=== PATIENT | female | born 1950 | race Caucasian/White ===

== ENCOUNTER 2018-06-13 00:36 | Observation (INO) ==
[2018-06-13] MEDS ORDERED: Naloxone 0.4 MG/ML INJ IVP PRN (12:02)
[2018-06-13] MEDS: Diclofenac Sodium 75 MG TABLET PO SCH (16:42)
[2018-06-13] MEDS ORDERED: traZODone 50 MG TABLET PO SCH (18:00)
[2018-06-13] MEDS: traMADol 50 MG TABLET PO PRN (20:16)
[2018-06-13] MEDS: Azithromycin 500 MG in D5% in Water 250 ML IVPB SCH (20:17)
[2018-06-13] MEDS: cefTRIAXone 1,000 MG in Water for inj. (sterile) 20 ML 10 ML IVP SCH (20:24)
[2018-06-13] MEDS: Budesonide/Formoterol 80/4.5 MDI IH SCH (21:52)
--- NOTE | 2018-06-13 22:07 | Internal Med History&Physical ---
Date of Encounter: 06/13/18 Time of Encounter: 17:00 Internal Medicine - H&P: HPI Admitted From: Home Plans for Post Hospital Care: Home History of present illness: The patient is a 68-year-old woman. She has had expressive aphasia for the last 5-7 days. It is like she is not able to answer simple questions at times. Sometimes, she starts answering the questions but cannot finish answers. Denies weakness in extremities. She has normal swallowing. She has normal gait. The patient has had mild/moderate cough and some wheezing for the last 2 weeks. She was found to have left-sided pneumonia, when evaluated at [facility] emergency department. She does not have any fever or chills. She has not developed any dyspnea. It was on May 31, when this patient had an episode of altered mental status. She was found to have hyponatremia and dehydration, when evaluated in an emergency department. PAST MEDICAL HX: She has been treated for hypertension, asthma, GERD, fibromyalgia and depression with anxiety. PAST FAMILY HX: Positive for type 2 diabetes mellitus and hypertension. PAST SOCIAL HX: She has no history of alcohol or tobacco use. REVIEW OF SYSTEMS: All 14 organ systems were reviewed by me with the patient. Positive and pertinent negative findings are listed above. The rest of organ systems is negative. PHYSICAL EXAM: Skin: Free of rash and discoloration. Eyes: Sclera is white. There is no discharge from eyes. ENMT: Oral/pharyngeal mucosa is normal in appearance. There is no discharge from nose or ears. Respiratory: Normal breath sounds with no crackles and wheezes bilaterally. CV: Heart is regular with no gallop or murmur. GI: Abdomen is flat and soft with no palpable mass or visceromegaly. : There is no tenderness in patient's flanks bilaterally. Neuro exam: He has good strength in upper and lower extremities. He has normal eye movements. Psychiatric: He has normal affect. His thought process is appropriate to the situation. ADDITIONAL DATA: She had a bunch of tests done at [facility] emergency room. They found her to have a patchy opacity within the left upper lung; with some regularity. CBC showed hemoglobin of 15.5 with WBC of 7.7 thousand and normal platelet count. Electrolytes were normal. Creatinine was 0.80. Random glucose was 101. Liver function tests were normal. Lactic acid was 0.7. A/P: Expressive aphasia. We did MRI of her brain. It showed normal findings. We will consult Dr. Cm, neurology. Pneumonia. I will continue IV Rocephin. I will add IV Zithromax. I cannot hear any wheezes. I will make her nebulizer treatments with DuoNeb on when necessary basis. Hypertension. Under control. To continue carvedilol. Asthma. Under control. To continue Advair and when necessary Ventolin HFA inhalations. GERD. Continue omeprazole. Past Med Surg Social Fam HX - Past Medical History Medical history: COPD, GERD, hypertension Psychiatric history: no psych history - Social History Smoking Status: Never smoker Alcohol use: occasionally Drug use: none - Family History Father Name: donnie andrade Living Status: Hx Family Endocrine Disorder: Yes (dm) Internal Medicine - H&P: Meds Buspirone HCl [Buspar] 10 mg PO BID 04/07/18 [History] Diclofenac Sodium [Voltaren] 75 mg PO BIDWM 04/07/18 [History] Fluticasone/Salmeterol [Advair 250-50 Diskus] 1 each IH BID 04/07/18 [History] Omeprazole [PriLOSEC] 40 mg PO DAILY 04/07/18 [History] Pregabalin [Lyrica] 100 mg PO BID 04/07/18 [History] hydroCHLOROthiazide [Hydrochlorothiazide] 25 mg PO QAM 04/07/18 [History] Albuterol Sulfate [Ventolin Hfa] 2 puff IH Q6H PRN 06/13/18 [History] Carvedilol [Coreg] 25 mg PO BID 06/13/18 [History] Duloxetine HCl [Cymbalta] 60 mg PO DAILY 06/13/18 [History] Etodolac 400 mg PO BID 06/13/18 [History] Lisinopril [Zestril] 20 mg PO DAILY 06/13/18 [History] traZODone [TraZODone] 50 mg PO HS 06/13/18 [History] 3 Allergy/AdvReac Type Severity Reaction Status Date / Time No Known Drug Allergies Allergy Unknown none Verified 06/12/18 19:39 - Constitutional Vitals: Temp Pulse Resp BP Pulse Ox 98.2 F 88 16 177/84 95 06/13/18 19:46 06/13/18 19:46 06/13/18 21:52 06/13/18 19:46 06/13/18 21:52 General appearance: Present: A&O X 3, no acute distress, answers questions appropriately Exam: xx Internal Med - H&P Results - Impressions ITS Impressions Brain MRI 06/13/18 06:12 IMPRESSION: Cerebral atrophy. Moderate chronic small vessel ischemic changes. No acute brain parenchymal abnormality. D/ / 06/13/2018 15:31:06 Erica Wasserman MD / [email or web address] Interpreting Provider: Erica Wasserman MD - Assessment and plan (1) Expressive aphasia Current Visit: Yes Status: Acute (2) Pneumonia Current Visit: Yes Status: Acute Qualifiers: Pneumonia type: due to unspecified organism Laterality: left Lung location: upper lobe of lung Qualified Code(s): J18.1 - Lobar pneumonia, unspecified organism (3) Asthma Current Visit: Yes Status: Chronic Qualifiers: Asthma severity: mild Asthma persistence: unspecified Asthma complication type: unspecified Qualified Code(s): J45.909 - Unspecified asthma, uncomplicated (4) GERD (gastroesophageal reflux disease) Current Visit: Yes Status: Chronic Qualifiers: Esophagitis presence: esophagitis presence not specified Qualified Code(s): K21.9 - Gastro-esophageal reflux disease without esophagitis (5) Fibromyalgia Current Visit: Yes Status: Acute - Time Spent With Patient Total time spent is greater than 50% in coordination of care (as documented) at patient's floor/unit and/or counseling patient: 25 - 35 minutes - VTE Reasons for not Prescribing Prophylaxis: Treatment not Indicated - Low risk for VTE Deep Vein Thrombosis/Pulmonary Embolism Present on Admission: No
[2018-06-14 03:09] LABS: Basophils # 0.1 K/mcL (0.0-0.2); Basophils % 0.6 %; Eosinophils # 0.1 K/mcL (0.0-0.6); Eosinophils % 1.2 %; Hemoglobin 13.9 g/dL (11.5-15.4); Immature Granulocytes % 0.3 % (0-4); Lymphocytes # 3.2 K/mcL (0.6-4.6); Lymphocytes % 33.8 %; Mean Corpuscular HGB Conc 32.3 g/dL (31.6-35.5); Mean Corpuscular Hemoglobin 28.4 pg (28.0-33.3); Mean Corpuscular Volume 87.9 fL (83.0-100.0); Mean Platelet Volume 10.1 fL (9.4-12.4); Monocytes # 0.6 K/mcL (0.0-1.3); Monocytes % 6.6 %; Neutrophils # 5.4 K/mcL (1.6-8.9); Platelet Count 272 K/mcL (140-400); Red Blood Count 4.89 M/mcL (3.82-4.97); Red Cell Distribution Width 14.2 % (11.5-14.5); Segmented Neutrophils % 57.5 %
[2018-06-14 03:29] LABS: BUN/Creatinine Ratio 20 (6-26); Blood Urea Nitrogen 17 mg/dL (8-23); Calcium 9.3 mg/dL (8.6-10.3); Carbon Dioxide 25 mEq/L (23-29); Chloride 100 mEq/L (98-107); Glucose 116 mg/dL (70-105); Osmolality,Calculated 279 (280-300); Potassium 3.8 mEq/L (3.5-5.1); Sodium 133 mEq/L (136-145); eGFR For Non-African Americans > 60 (> 60)
[2018-06-14] MEDS: *HR* Promethazine 25 MG/ML VIAL IVP PRN ×2 (07:20→14:06)
[2018-06-14] MEDS: hydroCHLOROthiazide 25 MG TABLET PO SCH (07:48)
[2018-06-14] MEDS: Diclofenac Sodium 75 MG TABLET PO SCH ×2 (07:48→17:21)
[2018-06-14] MEDS: cefTRIAXone 1,000 MG in Water for inj. (sterile) 20 ML 10 ML IVP SCH (07:49)
[2018-06-14] MEDS: Budesonide/Formoterol 80/4.5 MDI IH SCH ×2 (07:50→20:44)
[2018-06-14] MEDS: traMADol 50 MG TABLET PO PRN (08:01)
[2018-06-14] MEDS ORDERED: *HR* Labetalol 20 MG/4 ML SYRINGE IVP ONE ×2 (08:29→10:33)
[2018-06-14] MEDS ORDERED: NON-FORMULARY MEDICATION 1 EACH EACH (Duloxetine Hcl [Cymbalta] 60 MG) PO SCH (09:00)
[2018-06-14] MEDS: amLODIPine 5 MG TABLET PO SCH (09:43)
--- NOTE | 2018-06-14 11:00 | Neurology - Consult Note ---
Date of Encounter: 06/14/18 Time of Encounter: 10:53 Assessment and Plan (1) Altered mental status, unspecified Current Visit: Yes Status: Acute Patient appears encephalopathic to me. This appears to be mild degree and there appears to be component of memory difficulty and mental status change but the language content appears largely intact. She is able to spell, oriented to time place and person and at times she may appear a little slow in looking for the right words but the patterns certainly not aphasia or dysphasic. She has such similar presentation in last month found to be related to hyponatremia or UTI. There may be also a component of baseline mild cognitive impairment due to MRI of brain showing moderate small vessel ischemic changes. But since the mental status is acute, this white matter signal changes would not be the cause for blanchard ch mental status change. At this time, i would recommend continuing medical and supportive. Not much to add from neurology perspective. not concerned for [employer] MEDICAL ASSISTANT infection or encephalitis. She does have chronic headaches and fibromyalgia and been taking tramadol so it would expected that she has chronic headaches. She is currently nauseous and vomiting so would recommend treating for that. A carotid artery duplex study would be appropriate but would not explain her clinical symptoms. Due to the degree of white matter signal changes it would be beneficial to start her on aspirin 81mg daily if no contraindications exist. Qualifiers: Altered mental status type: unspecified Qualified Code(s): R41.82 - Altered mental status, unspecified History of Present Illness Chief complaint: slurred speech and altered mental status HPI: Ms. Carpio is a 68 year old female with PMH significant for HTN, emphysema, fibromyalgia, GERD, who was admitted to the hospital for evaluation of altered mental status. She saw her PCP on 06/12/2018 who thought that she was altered and sent her to [facility], then transferred for further evaluation mainly to assess possibility of a stroke. Patient has had episodes of alerted mental status in May due to medical conditions, including UTI, hyponatremia therefore initially she was though to be some of these conditions. An MRI of brain showed no evidence of acute infarct. Neurology was consulted to evaluate her. At the time of this interview, patient is having no significant aphasia or dysphasic symptoms, rather mild dysarthria and also a component of memory difficulty Overall speaking her language content appears appropriate. She states that she feels not not well because she has been vomiting. She complains of having frontal headache but no neck pain, no nuchal rigidity CT of head and MRI of brain images are reviewed and showed no acute intracranial abnormality. There are nonspecific white matter signal changes consistent with small vessel ischemia. Past Med Surg Social Fam HX - Past Medical History Medical history: COPD, GERD, hypertension Psychiatric history: no psych history - Social History Smoking Status: Never smoker Alcohol use: occasionally Drug use: none - Family History Father Name: donnie andrade Living Status: Hx Family Endocrine Disorder: Yes (dm) Medications and Allergies Buspirone HCl [Buspar] 10 mg PO BID 04/07/18 [History] Diclofenac Sodium [Voltaren] 75 mg PO BIDWM 04/07/18 [History] Fluticasone/Salmeterol [Advair 250-50 Diskus] 1 each IH BID 04/07/18 [History] Omeprazole [PriLOSEC] 40 mg PO DAILY 04/07/18 [History] Pregabalin [Lyrica] 100 mg PO BID 04/07/18 [History] hydroCHLOROthiazide [Hydrochlorothiazide] 25 mg PO QAM 04/07/18 [History] Albuterol Sulfate [Ventolin Hfa] 2 puff IH Q6H PRN 06/13/18 [History] Carvedilol [Coreg] 25 mg PO BID 06/13/18 [History] Duloxetine HCl [Cymbalta] 60 mg PO DAILY 06/13/18 [History] Etodolac 400 mg PO BID 06/13/18 [History] Lisinopril [Zestril] 20 mg PO DAILY 06/13/18 [History] traZODone [TraZODone] 50 mg PO HS 06/13/18 [History] Allergy/AdvReac Type Severity Reaction Status Date / Time No Known Drug Allergies Allergy Unknown none Verified 06/12/18 19:39 All Systems: The remainder of the systems were reviewed and are negative Physical Examination - Vital Signs Vital Signs: Initial Vital Signs Temp Pulse Resp BP Pulse Ox 97.8 F 65 14 184/103 96 06/13/18 03:07 06/13/18 03:07 06/13/18 03:07 06/13/18 03:07 06/13/18 03:07 - Constitutional General appearance: uncomfortable - Neurologic Detailed motor examination: full strength in all major muscle groups Motor examination - right side: 10/12: deltoids, biceps, triceps, wrist flexion, wrist extension, general farm hand, hip flexors, tibialis Anterior, quadriceps, toe extension (EHL), plantarflexion Motor examination - left side: 10/12: deltoids, biceps, triceps, wrist flexion, wrist extension, hip flexors, general farm hand, quadriceps, tibialis Anterior, toe extension (EHL), plantarflexion Detailed sensory examination: intact Posture: other (None) Reflex and gait examination: intact (Gait not assessed) Reflexes: Biceps: 2+, Triceps: 2+, Brachioradialis: 2+, Patella: 2+, Achilles: 2+ Mental Status Examination: awake, alert, oriented to person, oriented to place, oriented to time, follows commands appropriately, answers questions appropria tely, no agnosia, no aphasia, no aproxia Cranial nerve examination: PERRL, EOMI, visual bull intact, corneal reflexes brisk symmetrically, sensory to face intact, mastication intact, no facial asymmetry is present, no dysarthria, hearing is intact symmetrically, soft palat e elevates bilaterally upon phonation, gag reflex intact, flexes SCM and trapezius muscles symmetrically with full power, tongue protrudes midline, no atrophy or facial fasiculations present Cerebellar examination: no dysmetria, performs finger to nose and heel to jacques symmetrically without ataxia, no gait ataxia, no truncal ataxia, no difficulty with rapid alternating movements Results - Laboratory Findings CBC and BMP: 06/14/18 02:51 06/14/18 02:51 Abnormal lab findings: Abnormal lab results Sodium 133 mEq/L (136-145) L 06/14/18 02:51 Glucose 116 mg/dL (70-105) H 06/14/18 02:51 Calculated Osmolality 279 (280-300) L 06/14/18 02:51 - Diagnostic Findings Additional findings: MRI OF THE BRAIN WITHOUT CONTRAST, 06/13/2018 2:42 pm TECHNIQUE: Multiplanar multisequence MRI of the brain was performed without the administration of intravenous contrast. COMPARISON: None HISTORY: ORDERING SYSTEM PROVIDED HISTORY: Aphasia; CVA Altered mental status. Difficulty speaking. Initial evaluation. FINDINGS: INTRACRANIAL STRUCTURES/VENTRICLES: There is no acute infarct. The ventricles and cisternal spaces are prominent consistent with cerebral atrophy. There are numerous and confluent areas of high signal in the periventricular white matter and centrum semiovale that are likely related to chronic small vessel ischemic disease. There is no midline shift or mass effect. There are no areas of restricted diffusion. ORBITS: The visualized portion of the orbits demonstrate no acute abnormality. SINUSES: The visualized paranasal sinuses and mastoid air cells are clear. BONES/SOFT TISSUES: The bone marrow signal intensity appears normal. The soft tissues demonstrate no acute abnormality. MR/MR head/brain wo con IMPRESSION: Cerebral atrophy. Moderate chronic small vessel ischemic changes. No acute brain parenchymal abnormality. D/ / 06/13/2018 15:31:06 Erica Wasserman MD / [facility] Interpreting Provider: Erica Wasserman MD Consult Discharge Plan - Plan Referrals: Zeb Greene MD [Primary Care Provider] -
[2018-06-14] MEDS: Pregabalin 50 MG CAPSULE PO SCH ×2 (11:05→19:45)
[2018-06-14] MEDS: Lisinopril 20 MG TABLET PO SCH (11:06)
[2018-06-14] MEDS ORDERED: *HR* Labetalol 20 MG/4 ML SYRINGE IVP PRN (12:48)
[2018-06-14 13:21] LABS: Chol/HDL Ratio 3.8 (0-4.9); Cholesterol 158 mg/dL (< 200); HDL Cholesterol 42 mg/dL (40-59); LDL Cholesterol,Calculated 101 mg/dL (0-99); Triglycerides 76 mg/dL (< 150)
--- NOTE | 2018-06-14 15:48 | Internal Med Progress Note ---
Hospitalist Progress Note - Encounter Date of Encounter: 06/14/18 Time of Encounter: 12:30 - Subjective Interval History: H&P reviewed. Patient was admitted for concern of expressive aphasia for the last 5 days. Spoke to pt's sister this morning who states that patient had underwent extensive workup at the OSH and pt was told that she has "underlying white matter degenerative changes". She also follows up for pituitary gland with her senior advocate apparently. Today, patient is slow to respond but unable to appreciate true expressive aphasia. No focal weakness/numbness or facial droop. - Exam Vitals: Temp Pulse Resp BP Pulse Ox 98.2 F 68 16 157/82 93 06/14/18 08:19 06/14/18 13:29 06/14/18 08:19 06/14/18 13:29 06/14/18 08:19 Exam: General: Alert and oriented, not in acute distress. Cardiovascular:Normal S1 & S2, No JVD. Pulse regular. Lungs: clear to auscultation, no wheezes/rales Abdomen:Soft, non-tender, no rigidity. Neurological: Intact strength in all 4 limbs, CN II-XII intact, unable to appreciate expressive aphasia. Babinski -ve bilaterally - Assessment and Plan (1) Expressive aphasia Current Visit: Yes Status: Inactive Assessment and Plan: unable to appreciate at this point MRI -ve for acute infarct pt's family states that she has had extensive workup done at the OSH obtain records appreciate neuro input (2) Uncontrolled hypertension Current Visit: Yes Status: Acute Assessment and Plan: presented with extremely elevated BP meds reconciled this morning, resume home meds and add PRN labetalol and hydralazine no evidence of PRES on MRI (3) Pneumonia Current Visit: Yes Status: Acute Assessment and Plan: her presentation appears to be more consistent with encephalopathy, unsure how much of it is acute vs. chronic CXR suggestive of PNA on L lung base, no fever or leukocytosis would continue IV Abx repeat CXR tomorrow (4) Asthma Current Visit: Yes Status: Chronic Assessment and Plan: resume home inhalers (5) GERD (gastroesophageal reflux disease) Current Visit: Yes Status: Chronic Assessment and Plan: resume home meds (6) Fibromyalgia Current Visit: Yes Status: Acute Assessment and Plan: resume home meds DVT Prophylaxis: SQ heparin - Time Spent with Patient Total time spent is greater than 50% in coordination of care (as documented) at patient's floor/unit and/or counseling patient: Plan of Care Discussed with: patient (discussed with family) Internal Medicine: Result - Labs CBC & Chem 7: 06/14/18 02:51 06/14/18 02:51 Labs: Short CBC 06/14/18 Range/Units 02:51 WBC 9.4 (4.3-11.1) K/mcL Hgb 13.9 D (11.5-15.4) g/dL Hct 43.0 (35.3-44.9) % Plt Count 272 (140-400) K/mcL Neutrophils # 5.4 (1.6-8.9) K/mcL BMP 06/14/18 02:51 Sodium 133 L Potassium 3.8 Chloride 100 Carbon Dioxide 25 BUN 17 Creatinine 0.83 Glucose 116 H Calcium 9.3 - Impressions Impressions Chest X-Ray 06/13/18 22:11 IMPRESSION: Mild left basilar airspace opacities compatible with atelectasis versus pneumonia. The previously described left upper lobe airspace opacities are not clearly seen. D/ / Sami Wakefield MD / Sami Wakefield MD Interpreting Provider: Sami Wakefield MD - VTE Reasons for not Prescribing Prophylaxis: Treatment not Indicated - Low risk for VTE Documentation of Mechanical Device: Venous foot pump, device Deep Vein Thrombosis/Pulmonary Embolism Present on Admission: No Consult Discharge Plan - Plan Referrals: Zeb Greene MD [Primary Care Provider] - (3) Pneumonia Qualifiers: Pneumonia type: due to unspecified organism Laterality: left Lung location: upper lobe of lung Qualified Code(s): J18.1 - Lobar pneumonia, unspecified organism (4) Asthma Qualifiers: Asthma severity: mild Asthma persistence: unspecified Asthma complication type: unspecified Qualified Code(s): J45.909 - Unspecified asthma, uncomplicated (5) GERD (gastroesophageal reflux disease) Qualifiers: Esophagitis presence: esophagitis presence not specified Qualified Code(s): K21.9 - Gastro-esophageal reflux disease without esophagitis
[2018-06-14] MEDS: Azithromycin 500 MG in D5% in Water 250 ML IVPB SCH (19:46)
[2018-06-14] MEDS ORDERED: traZODone 50 MG TABLET PO SCH (21:00)
[2018-06-15] MEDS: Budesonide/Formoterol 80/4.5 MDI IH SCH (07:44)
[2018-06-15] MEDS: Pregabalin 50 MG CAPSULE PO SCH (09:01)
[2018-06-15] MEDS: Lisinopril 20 MG TABLET PO SCH (09:01)
[2018-06-15] MEDS: amLODIPine 5 MG TABLET PO SCH (09:01)
[2018-06-15] MEDS: Diclofenac Sodium 75 MG TABLET PO SCH (09:01)
[2018-06-15] MEDS: hydroCHLOROthiazide 25 MG TABLET PO SCH (09:01)
[2018-06-15] MEDS: cefTRIAXone 1,000 MG in Water for inj. (sterile) 20 ML 10 ML IVP SCH (09:02)
[2018-06-15 10:10] LABS: Basophils # 0.1 K/mcL (0.0-0.2); Basophils % 0.6 %; Eosinophils # 0.1 K/mcL (0.0-0.6); Eosinophils % 1.4 %; Hematocrit 47.9 % (35.3-44.9); Immature Granulocytes % 0.1 % (0-4); Lymphocytes # 2.4 K/mcL (0.6-4.6); Lymphocytes % 27.9 %; Mean Corpuscular HGB Conc 32.4 g/dL (31.6-35.5); Mean Corpuscular Hemoglobin 28.6 pg (28.0-33.3); Mean Corpuscular Volume 88.4 fL (83.0-100.0); Mean Platelet Volume 10.4 fL (9.4-12.4); Monocytes # 0.3 K/mcL (0.0-1.3); Monocytes % 3.9 %; Neutrophils # 5.6 K/mcL (1.6-8.9); Platelet Count 307 K/mcL (140-400); Red Blood Count 5.42 M/mcL (3.82-4.97); Red Cell Distribution Width 14.5 % (11.5-14.5); Segmented Neutrophils % 66.1 %
[2018-06-15 10:12] LABS: Hemoglobin 15.5 g/dL (11.5-15.4)
[2018-06-15 10:30] LABS: BUN/Creatinine Ratio 22 (6-26); Blood Urea Nitrogen 20 mg/dL (8-23); Calcium 9.5 mg/dL (8.6-10.3); Carbon Dioxide 28 mEq/L (23-29); Chloride 96 mEq/L (98-107); Glucose 202 mg/dL (70-105); Osmolality,Calculated 286 (280-300); Potassium 3.7 mEq/L (3.5-5.1); Sodium 134 mEq/L (136-145); eGFR For Non-African Americans > 60 (> 60)
--- NOTE | 2018-06-15 11:02 | Discharge Summary ---
- NOTES TO OUTPATIENT PROVIDER Notes to Outpatient Provider: Patient was admitted for ?expressive aphasia, metabolic encephalopathy, and L LL PNA. MRI negative for acute infarct and her neurological symptoms significantly improved after being started on IV antibiotics. Will be discharged home on 5 more days of levaquin and follow up in [place] where her neurology workup was done previously. Orders not resulted at time of discharge: Pending orders 06/14/18 15:56 Legionella Antigen [RM] Routine S. Pneumoniae Antigen [RM] Routine Date of Encounter: 06/15/18 Time of Encounter: 08:30 - Discharge Diagnosis (1) Expressive aphasia Priority: Secondary Status: Inactive (2) Uncontrolled hypertension Priority: Secondary Status: Acute (3) Pneumonia Priority: Primary Status: Acute Qualifiers: Pneumonia type: due to unspecified organism Laterality: left Lung location: upper lobe of lung Qualified Code(s): J18.1 - Lobar pneumonia, unspecified organism (4) Asthma Priority: Secondary Status: Chronic Qualifiers: Asthma severity: mild Asthma persistence: unspecified Asthma complication type: unspecified Qualified Code(s): J45.909 - Unspecified asthma, uncomplicated (5) GERD (gastroesophageal reflux disease) Priority: Secondary Status: Chronic Qualifiers: Esophagitis presence: esophagitis presence not specified Qualified Code(s): K21.9 - Gastro-esophageal reflux disease without esophagitis (6) Fibromyalgia Priority: Secondary Status: Acute Hospital course: Ms. Carpio is a 68 year old female was admitted for ?expressive aphasia, metabolic encephalopathy, and L LL PNA. MRI negative for acute infarct and her neurological symptoms significantly improved after being started on IV antibiotics. Will be discharged home on 5 more days of levaquin and follow up in [place] where her neurology workup was done previously. Discharge discussed with: patient, nurse - Time Spent with Patient Total time spent providing and/or coordinating discharge services: 33 mins - Discharge Medications Prescriptions: amLODIPine [Norvasc] 5 mg PO DAILY #30 tablet levoFLOXacin [Levaquin] 750 mg PO DAILY #5 tablet Home Medications: Buspirone HCl [Buspar] 10 mg PO BID 04/07/18 [History] Diclofenac Sodium [Voltaren] 75 mg PO BIDWM 04/07/18 [History] Fluticasone/Salmeterol [Advair 250-50 Diskus] 1 each IH BID 04/07/18 [History] Omeprazole [PriLOSEC] 40 mg PO DAILY 04/07/18 [History] Pregabalin [Lyrica] 100 mg PO BID 04/07/18 [History] hydroCHLOROthiazide [Hydrochlorothiazide] 25 mg PO QAM 04/07/18 [History] Albuterol Sulfate [Ventolin Hfa] 2 puff IH Q6H PRN 06/13/18 [History] Carvedilol [Coreg] 25 mg PO BID 06/13/18 [History] Duloxetine HCl [Cymbalta] 60 mg PO DAILY 06/13/18 [History] Etodolac 400 mg PO BID 06/13/18 [History] Lisinopril [Zestril] 20 mg PO DAILY 06/13/18 [History] traZODone [TraZODone] 50 mg PO HS 06/13/18 [History] amLODIPine [Norvasc] 5 mg PO DAILY #30 tablet 06/15/18 [Rx] levoFLOXacin [Levaquin] 750 mg PO DAILY #5 tablet 06/15/18 [Rx] Allergies/Adverse Reactions: Allergy/AdvReac Type Severity Reaction Status Date / Time No Known Drug Allergies Allergy Unknown none Verified 06/12/18 19:39 Date of admission: 06/13/18 02:34 Primary care physician: Zeb Greene MD Consults: 06/13/18 09:37 Consult to Speech Therapy [CONS] Stat Comment: Evaluate, develop and implement POC Reason for Consult: Possible stroke Call Completed: Yes 06/13/18 18:45 Consult to Neurology [CONS] Routine Consulting Provider: Neurology [facility] Reason for Consult: EXPRESSIVE APHASIA Time Notified: 18:45 Call Completed: Yes 06/14/18 15:54 Consult to Occupational Therapy [CONS] Routine Comment: Evaluate, develop and implement POC Reason for Consult: fall risk Does patient have active BEDREST order?: No Is patient medically & hemodynamically stable?: Yes Consult to Physical Therapy [CONS] Routine Comment: Evaluate, develop and implement POC Reason for Consult: fall risk Does patient have active BEDREST order?: No Is patient medically & hemodynamically stable?: Yes - Constitutional Vitals: Temp Pulse Resp BP Pulse Ox 97.4 F L 87 18 134/74 94 06/15/18 06:22 06/15/18 06:22 06/15/18 07:45 06/15/18 06:22 06/15/18 07:45 General appearance: Present: A&O X 3, no acute distress, answers questions appropriately Exam: General: Alert and oriented, not in acute distress. Cardiovascular:Normal S1 & S2, No JVD. Pulse regular. Lungs: Relatively clear to auscultation, no wheezes/rales Abdomen:Soft, non-tender, no rigidity. Neurological: Intact strength in all 4 limbs, CN II-XII intact, unable to appreciate expressive aphasia. Babinski -ve bilaterally - Patient Status Disposition: Home, Self-Care Condition: Fair Functional capacity at discharge: independent ambulation Overall status at discharge: patient is progressing back to baseline - Discharge Instructions Instructions: Pneumonia (DC), Chronic Hypertension (DC) Follow Up With: Zeb Greene MD [Primary Care Provider] - Additional Instructions: Complete 5 more days of PO Levaquin Follow up with her previous neurologist as outpatient - Diet and Activity Activity: resume usual activities as tolerated Diet: regular diet - VTE Reasons for not Prescribing Prophylaxis: Treatment not Indicated - Low risk for VTE Documentation of Mechanical Device: Venous foot pump, device Deep Vein Thrombosis/Pulmonary Embolism Present on Admission: No
[2018-06-15 11:24] VITALS: BP 126/72
--- NOTE | 2018-06-15 13:10 | Physician Discharge Referral ---
Home Health/Hosp Referral Info Transfer to: Home Health - Diagnosis (1) Expressive aphasia Priority: Primary Status: Inactive (2) Uncontrolled hypertension Priority: Secondary Status: Acute (3) Pneumonia Priority: Secondary Status: Acute (4) Asthma Priority: Secondary Status: Chronic (5) GERD (gastroesophageal reflux disease) Priority: Secondary Status: Chronic (6) Fibromyalgia Priority: Secondary Status: Acute - Respiratory Orders Smoking Cessation: Smoking cessation has been advised. For more information, call the [place] Tobacco Quit Line at 5-529-FNGZ-NOW. - Services Needed Following services are medically necessary services: Nursing, Home Health Aide, Physical Therapy, Occupational Therapy - Transfer Medications Prescriptions: amLODIPine [Norvasc] 5 mg PO DAILY #30 tablet levoFLOXacin [Levaquin] 750 mg PO DAILY #5 tablet Home Medications: Buspirone HCl [Buspar] 10 mg PO BID 04/07/18 [History] Diclofenac Sodium [Voltaren] 75 mg PO BIDWM 04/07/18 [History] Fluticasone/Salmeterol [Advair 250-50 Diskus] 1 each IH BID 04/07/18 [History] Omeprazole [PriLOSEC] 40 mg PO DAILY 04/07/18 [History] Pregabalin [Lyrica] 100 mg PO BID 04/07/18 [History] hydroCHLOROthiazide [Hydrochlorothiazide] 25 mg PO QAM 04/07/18 [History] Albuterol Sulfate [Ventolin Hfa] 2 puff IH Q6H PRN 06/13/18 [History] Carvedilol [Coreg] 25 mg PO BID 06/13/18 [History] Duloxetine HCl [Cymbalta] 60 mg PO DAILY 06/13/18 [History] Etodolac 400 mg PO BID 06/13/18 [History] Lisinopril [Zestril] 20 mg PO DAILY 06/13/18 [History] traZODone [TraZODone] 50 mg PO HS 06/13/18 [History] amLODIPine [Norvasc] 5 mg PO DAILY #30 tablet 06/15/18 [Rx] levoFLOXacin [Levaquin] 750 mg PO DAILY #5 tablet 06/15/18 [Rx] Allergies/Adverse Reactions: Allergy/AdvReac Type Severity Reaction Status Date / Time No Known Drug Allergies Allergy Unknown none Verified 06/12/18 19:39 Certification: Further, I certify that my clinical findings support that this patient is homebound (i.e. absences from home require considerable and taxing effort and are for medical reasons or congregational services or infrequently or short duration when for other reasons) because: Homebound Reason: Patient requires assistance of a person or device to safely leave home Attestation: My signature below is to certify that this patient is under my care and that I, or nurse practitioner, or a physician's family law legal assistant working with me, has a [id number] encounter with this patient.
== END 2018-06-15 14:47 | disposition home or self-care (01) ==
LOC: 3NENU → SUATTDRO 02:34
PROVIDERS: ADMIT Internal Medicine; ATTEND Internal Medicine

== ENCOUNTER 2019-02-04 06:13 | Inpatient (IN) ==
[2019-02-04] MEDS ORDERED: *HR* Propofol 200 MG/20 ML VIAL IVP ONE (06:19)
[2019-02-04] MEDS ORDERED: Lidocaine -MPF 2% 2 ML VIAL ONE (06:20)
[2019-02-04] MEDS ORDERED: *HR* Succinylcholine 200 MG/10 ML VIAL IVP ONE (06:20)
[2019-02-04] MEDS ORDERED: Ondansetron 4 MG/2 ML VIAL ONE (06:23)
[2019-02-04] MEDS ORDERED: *HR* FentaNYL (PF) 100 MCG/2 ML VIAL ONE ×2 (06:24→10:11)
[2019-02-04] MEDS ORDERED: *HR* Midazolam HCl 2 MG/2 ML VIAL ONE (06:25)
[2019-02-04] MEDS ORDERED: Albumin Human 5% 0 GM/0 ML VIAL ONE (06:29)
--- NOTE | 2019-02-04 07:06 | Anesthesia Evaluation PreOp ---
Date of Encounter: 02/04/19 Time of Encounter: 07:03 - Past History Planned Operation: laminectomy L4-L5 Cardiac History: HTN Pulmonary History: COPD (emphysema on home oxgyen prn, chronic bronchitis, O2 sat at home typically 88-95% on 3L/min) BEAD PICKER History: Other (anxiety, lumbar radiculopathy) Other Medical History: Other (fibromyalgia) Anesthesia History: No Prior Anesthetic Complications, Past Anesthesia (ankle, shoulder, tubal, cataract, tonsil,) : No Alcohol Use: occasionally Drug use: none Medications and Allergies Buspirone HCl [Buspar] 10 mg PO BID 04/07/18 [History] Diclofenac Sodium [Voltaren] 75 mg PO BIDWM 04/07/18 [History] Fluticasone/Salmeterol [Advair 250-50 Diskus] 1 each IH BID 04/07/18 [History] Omeprazole [PriLOSEC] 40 mg PO DAILY 04/07/18 [History] Pregabalin [Lyrica] 100 mg PO BID 04/07/18 [History] hydroCHLOROthiazide [Hydrochlorothiazide] 25 mg PO QAM 04/07/18 [History] Albuterol Sulfate [Ventolin Hfa] 2 puff IH Q6H PRN 06/13/18 [History] Carvedilol [Coreg] 25 mg PO BID 06/13/18 [History] Duloxetine HCl [Cymbalta] 60 mg PO DAILY 06/13/18 [History] Etodolac 400 mg PO BID 06/13/18 [History] Lisinopril [Zestril] 20 mg PO DAILY 06/13/18 [History] traZODone [TraZODone] 50 mg PO HS 06/13/18 [History] amLODIPine [Norvasc] 5 mg PO DAILY #30 tablet 06/15/18 [Rx] levoFLOXacin [Levaquin] 750 mg PO DAILY #5 tablet 06/15/18 [Rx] Allergy/AdvReac Type Severity Reaction Status Date / Time No Known Drug Allergies Allergy Unknown none Verified 06/12/18 19:39 - Meds/Allergy Pre-op Review Medications Reviewed: Yes Allergies Reviewed: Yes Beta Blockers on Current Med List: Yes Anesthesia Results - Labs Laboratory Tests 07/31/17 06/12/18 01/30/19 10:44 20:43 14:25 Hgb 12.5 Hct 39.9 Plt Count 317 ABG pH 7.39 ABG pCO2 50 H ABG pO2 97 ABG HCO3 30 H ABG Total CO2 31 H ABG O2 Saturation 97 ABG Base Excess 4 H Sodium Potassium Hemoglobin A1c 5.7 H 01/30/19 14:25 Hgb Hct Plt Count ABG pH ABG pCO2 ABG pO2 ABG HCO3 ABG Total CO2 ABG O2 Saturation ABG Base Excess Sodium 136 Potassium 4.5 Hemoglobin A1c - Imaging EKG: report reviewed, image reviewed Anesthesia Exam O2 Sat Height 1.6 m Weight 84.822 kg O2 Sat by Pulse Oximetry 91 Vital Signs Temp Pulse Resp BP Pulse Ox 98.1 F 88 18 130/74 91 02/04/19 06:51 02/04/19 06:51 02/04/19 06:51 02/04/19 06:51 02/04/19 06:51 - HEENT Pupil (Motor): Pupils equal, EOMI Mallampati: III Teeth: Normal - BEAD PICKER LOC: Oriented BEAD PICKER Motor: Normal RUE, Normal LUE, Normal Face BEAD PICKER Sensory: Normal: RUE, LUE, Face - Cardiac Rhythm: Regular Murmur: None JVD: No - Pulmonary Respiratory Effort: Symmetrical Anesthesia Assess/Plan ASA Score: 4 Level of consciousness: Cooperative, Oriented, Tranquil Anesthetic Plan: General Monitoring Plan: Standard Monitors Recovery Plan: PACU
[2019-02-04] MEDS ORDERED: CeFAZolin Syr 2,000MG/20 ML 2,000 MG/20 ML SYRINGE IVPB ONE (07:18)
[2019-02-04] MEDS ORDERED: *HR* Phenylephrine 10 MG/ML VIAL ONE ×2 (07:19→10:23)
[2019-02-04] MEDS ORDERED: Acetaminophen IV 1,000 MG/100 ML INFUS..BTL IVPB ONE (07:26)
[2019-02-04] MEDS ORDERED: *HR* Meperidine 25 MG/ML SYRINGE IVP PRN (07:26)
[2019-02-04] MEDS ORDERED: Ondansetron ODT 4 MG TAB.RAPDIS SL ONE (07:26)
[2019-02-04] MEDS ORDERED: Famotidine 20 MG/2 ML VIAL IVP ONE (07:26)
[2019-02-04] MEDS ORDERED: *HR* OxyCODONE Immed Rel 5 MG TABLET PO PRN (07:26)
[2019-02-04] MEDS ORDERED: *HR* Promethazine 25 MG/ML VIAL IVP PRN (07:26)
[2019-02-04] MEDS ORDERED: *HR* Remifentanil 2 MG VIAL IVP ONE (07:29)
[2019-02-04] MEDS ORDERED: Ringers Solution, Lactated 1,000 ML IVC SCH (07:30)
[2019-02-04] MEDS: Albuterol 2.5 MG/3 ML NEBULIZER IH ONE ×2 (07:49→11:39)
--- NOTE | 2019-02-04 07:57 | History & Physical Report ---
Date of Encounter: 02/04/19 Time of Encounter: 07:56 24 Hour HP Update - Instructions Instructions: If the History and Physical is less than 30 days old and was completed prior to A.M. admission and or procedure and has NOT been updated on calendar day of procedure please complete this update prior to performing procedure. - Update Patient reports changes in Medical Condition: No Changes in examination, assessment, or condition: No Changes in Medication: No Preop tests/diagnostics Reviewed: Yes Pre-Op MRSA Screen: Negative Surgery Remains Indicated: Yes Consent for Planned Operative Procedure(s) Verified: Yes - Pre-Operative Checklist Preoperative Checklist Indicated: No Prophylactic Antibiotic Ordered: Yes Home Medications Include Beta Francis: Yes Beta Francis Taken Today (Day of Surgery): No Beta Francis Taken Yesterday (Day Prior to Surgery): Yes Is VTE Prophylaxis Indicated?: Yes
[2019-02-04] MEDS ORDERED: Bacitracin 50,000 UNIT, Polymyxin B Sulfate 500,000 UNIT, Sodium Chloride IRRigation 1,... IR ONE (08:15)
[2019-02-04] MEDS ORDERED: Dexamethasone 4 MG/ML VIAL ONE (08:50)
--- NOTE | 2019-02-04 11:11 | Orthopedic Operative Note ---
Date of procedure: 02/04/19 Pre-op diagnosis: Spondylolisthesis, lumbar stenosis, lumbar radiculopathy Post-op diagnosis: same Operation/Findings: Posterior lumbar interbody fusion L4-L5: The patient successfully underwent general endotracheal anesthesia. The patient was given antibiotics prior to the start of the procedure. Compression boots and stockings were used for deep vein thrombosis prophylaxis. A Grewal catheter was placed. Leads for neuro monitoring were placed on the upper and lower extremities. This included the cranium. The neuro monitoring personnel confirmed there were satisfactory readings prior to the start of the procedure. The patient was turned prone on the Xavier table. The back was prepped and draped in the usual sterile fashion. An incision was was marked and centered over the involved L4-L5 levels in the mid line. The incision was deepened through the lumbar fascia. Bovie cautery and Rios elevators were used to reflect the paraspinal musculature at the lateral extent of the transverse processes of the involved L4 and L5 levels. Etelvina clamps were placed over the L4 and L5 spinous processes. An intraoperative lateral fluoroscopy graft was obtained. A conversation was held between the surgeon and radiologist and both confirmed we had the correct operative levels. We then placed pedicle screws in standard fashion with the aid of fluoroscopy and anatomic landmarks. Briefly a starter awl was used. A gearshift was subsequently used to enter the packing machine pilot can router hole via a transpedicular route into the vertebral body. The packing machine pilot can router hole was tapped with an undersized instrument, and subsequently four 6.5 x 40 mm pedicle screws were placed bilaterally at the indicated L4 and L5 levels. The screws were tested with the aid of the neurologic monitoring staff via pedicle screw stimulation. All reading suggested there was no significant cortical wall breech. The screws were also evaluated fluoro- graphically and appeared to be in satisfactory position. We then turned our attention to the decompression portion of the procedure. We removed the supraspinous and interspinous ligaments and subsequently the insertion of the ligamentum flavum on the undersurface of the proximal L4 lamina was dislodged with a curette. We then removed the ligamentum flavum as well as undercut the facets at this L4-L5 level to decompress the lateral recesses. We also performed a L4 laminectomy. After the decompression, which was over and above that which was required to place the interbody graft, the foramen and traversing roots at this L4 and L5 level were found to be free and patent. We also took part of the medial facets in order to aid in the decompression. We then protected the neural elements including the thecal sac and traversing nerve root on the right with a dural retractor. We made an annulotomy into the L4-L5 disc space and then removed entire disc material using Pituitary instruments. We trialed various size grafts after the endplates were prepared for graft insertion. A 10 x 26 inter body graft fit well within the L4-L5 disc space. We obtained some bone from the right posterior superior iliac spine through us a separate incision and combined with this with the bone which we had saved from the laminectomy portion of the procedure. This autograft bone was first placed in the anterior portion of the L4-L5 disc space and additional bone was placed within the interbody graft spacer. We then placed the interbody graft spacer obliquely across the L4-L5 disc space towards the midline while protecting the neural elements with a root retractor. When the graft was found to be in satisfactory position the rubber cutter and shape carver was removed. We then copiously irrigated the wound. We then decorticated the L4 and L5 transverse processes as well as the facet joints of the involved L4 and L5 levels to aid in the posterolateral fusion. We placed autograft bone in the lateral gutters over these regions. We then placed rods within the screw heads of the involved L4 and L5 levels and first locked the distal screws and then subsequently locked the proximal screws so as to improve and reduce the spondylolisthesis previously seen. We then closed the wound in layers with 1 Vicryl for the fascia, 2-0 Vicryl. Subcutaneous tissue, and Dermabond was used for skin closure. Sterile dressings were placed over the wound. The patient was turned supine on a hospital bed and extubated. All sponge instruments and needle counts were correct at the end of the procedure. The patient tolerated the procedure well without complications. Anesthesia: GETA Surgeon: Elio Patterson Jr Was there an court assistant present: No Estimated blood loss (cc): 125 Specimen: None Condition: stable Disposition: PACU
[2019-02-04] MEDS ORDERED: Albuterol 2.5 MG/3 ML NEBULIZER ONE (11:36)
[2019-02-04] MEDS: *HR* HYDROmorphone (PF) 1 MG/ML SYRINGE IVP PRN ×2 (11:40→11:47)
--- NOTE | 2019-02-04 12:24 | Anesthesia Evaluation Post Op ---
Date of Encounter: 02/04/19 Time of Encounter: 12:23 - Vital Signs Vital Signs: Vital Signs/O2 Sat, Most Current Temp Pulse Resp BP Pulse Ox 98.1 F 87 16 121/61 89 02/04/19 11:22 02/04/19 12:22 02/04/19 12:22 02/04/19 12:22 02/04/19 12:22 - Lungs Lungs: Rhonchi - Airway Airway: Non-obstructed - Cardiovascular Regular Rate, Baseline Rhythm - Mental Status Mental Status: Alert & Oriented, Answers Appropriately - Pain Pain Scale: 2 - Nausea Vomiting Nausea Vomiting: Not Present - Hydration Hydration: Tolerates oral liquids - Discharge PostOp Status: Transfer Patient to floor
[2019-02-04] MEDS ORDERED: Naloxone 0.4 MG/ML INJ IVP PRN (12:57)
[2019-02-04] MEDS ORDERED: Acetaminophen 325 MG TABLET PO PRN (12:57)
[2019-02-04] MEDS ORDERED: traZODone 50 MG TABLET PO PRN (12:57)
[2019-02-04] MEDS ORDERED: Ondansetron 4 MG/2 ML VIAL IVP PRN (12:57)
[2019-02-04] MEDS: *HR* HYDROcodone/Acet 5/325 mg TABLET PO PRN ×2 (14:31→21:32)
[2019-02-04] MEDS: Pregabalin 50 MG CAPSULE PO SCH ×2 (17:20→21:32)
[2019-02-04] MEDS: *HR* OxyCODONE Immed Rel 5 MG TABLET PO PRN (18:53)
[2019-02-04] MEDS: Budesonide/Formoterol 80/4.5 1 PUFF INH IH SCH (20:02)
[2019-02-05] MEDS: *HR* OxyCODONE Immed Rel 5 MG TABLET PO PRN ×3 (08:10→20:09)
[2019-02-05] MEDS: Pregabalin 50 MG CAPSULE PO SCH ×3 (09:24→20:09)
[2019-02-05] MEDS: Multivit/Ca/Min/Fe/FA 1 TAB TABLET PO SCH (09:25)
[2019-02-05] MEDS: amLODIPine 5 MG TABLET PO SCH (09:25)
[2019-02-05] MEDS: Vitamin B Complex/Vit C/Vit E 1 EACH TABLET PO SCH (09:25)
[2019-02-05] MEDS: Lisinopril 20 MG TABLET PO SCH (09:26)
[2019-02-05] MEDS: Cholecalciferol (D-3) 1,000 UNIT (25MCG) TABLET PO SCH (09:26)
[2019-02-05] MEDS: ARIPiprazole 5 MG TABLET PO SCH (09:29)
[2019-02-05] MEDS: Budesonide/Formoterol 80/4.5 1 PUFF INH IH SCH ×2 (10:30→20:04)
--- NOTE | 2019-02-05 11:21 | Orthopedics Progress Note ---
Date of Encounter: 02/05/19 Time of Encounter: 11:45 - Assessment and Plan (1) Spondylisthesis Current Visit: Yes Status: Chronic Qualifiers: Spinal region: unspecified Qualified Code(s): M43.10 - Spondylolisthesis, site unspecified (2) Lumbar stenosis Current Visit: Yes Status: Chronic Qualifiers: Neurogenic claudication status: unspecified Qualified Code(s): M48.061 - Spinal stenosis, lumbar region without neurogenic claudication (3) Lumbar radiculopathy Current Visit: Yes Status: Chronic (4) Status post lumbar spinal fusion Current Visit: Yes Status: Acute Subjective Principal diagnosis: s/p PLIF Interval history: POD#1 s/p Posterior lumbar interbody fusion L4-L5 [Spondylolisthesis, lumbar stenosis, lumbar radiculopathy] 02/04/19 Patient seen at bedside. A&Ox3 Dressing and incision c/d/i No calf tenderness, erythema, or warmth. Neurovascularly intact b/l LE. Labwork, vitals, and medications reviewed. Pain control: Adequate Participating in therapy. Brace in room All questions and concerns addressed. Educated on use of incentive spirometer, ambulation, and hydration. Patient educated on post-operative restrictions and care. Addressed: see above. Patient course and disposition discussed with Dr. Patterson D/C plan: continue postop care Objective Vital signs: Vital Signs Temp Pulse Resp BP Pulse Ox 02/05/19 06:24 97.9 F 68 16 134/67 94 02/05/19 03:52 97.6 F 63 17 140/76 92 02/04/19 21:32 93 02/04/19 20:02 18 91 02/04/19 18:36 98.0 F 68 15 149/84 93 02/04/19 15:00 97.7 F 82 18 119/72 91 02/04/19 14:00 98.0 F 86 18 122/74 90 02/04/19 13:30 89 18 132/77 89 02/04/19 13:00 97.9 F 85 18 151/79 91 02/04/19 12:42 84 16 136/73 90 02/04/19 12:32 82 16 134/67 90 02/04/19 12:22 87 16 121/61 89 02/04/19 12:12 86 16 132/60 88 02/04/19 12:02 88 16 134/70 91 02/04/19 11:52 88 16 133/78 92 02/04/19 11:42 90 18 149/73 96 02/04/19 11:32 88 18 147/91 92 02/04/19 11:22 98.1 F 90 16 151/88 98 Intake and Output 02/04/19 02/05/19 02/05/19 23:59 07:59 15:59 Intake Total 100 / 100 100 / 100 Output Total 1200 / 3490 2950 / 2950 Balance -1100 / -3390 -2850 / -2850 Intake: IV Fluids 100 / 100 100 / 100 Ancef 2,000 MG In 0.9 % Sodium 100 / 100 100 / 100 Chloride 100 ML @ 200 mls/hr IVPB Q8HR [facility] Rx#:[id number] Output: Catheter 1200 / 2300 2950 / 2950 Other: Weight 84.7 kg Patient Weight 02/05/19 23:59 Weight 84.7 kg - Labs CBC & BMP: 02/05/19 16:43 02/05/19 16:43 Consult Discharge Plan - Plan Referrals: Zeb Greene MD [Primary Care Provider] - Prescriptions: Docusate Sodium [Colace] 100 mg PO BID 5 Days #10 capsule OxyCODONE Immed Rel [Roxicodone 5 MG] 5 mg PO Q6HR PRN 5 Days #20 tablet PRN Reason: Severe Pain
[2019-02-05 17:01] LABS: Basophils % 0.4 %; Eosinophils # 0.1 K/mcL (0.0-0.6); Eosinophils % 0.6 %; Hematocrit 38.1 % (35.3-44.9); Hemoglobin 11.8 g/dL (11.5-15.4); Immature Granulocytes % 0.3 % (0-4); Lymphocytes # 2.5 K/mcL (0.6-4.6); Mean Corpuscular Hemoglobin 27.9 pg (28.0-33.3); Mean Corpuscular Volume 90.1 fL (83.0-100.0); Mean Platelet Volume 10.5 fL (9.4-12.4); Monocytes # 0.7 K/mcL (0.0-1.3); Monocytes % 6.9 %; Neutrophils # 7.1 K/mcL (1.6-8.9); Platelet Count 216 K/mcL (140-400); Red Blood Count 4.23 M/mcL (3.82-4.97); Red Cell Distribution Width 15.5 % (11.5-14.5); Segmented Neutrophils % 67.8 %; White Blood Count 10.5 K/mcL (4.3-11.1)
[2019-02-05 17:19] LABS: Platelet Estimate Normal (Normal)
[2019-02-05 17:46] LABS: BUN/Creatinine Ratio 21 (6-26); Blood Urea Nitrogen 15 mg/dL (8-23); Carbon Dioxide 23 mEq/L (23-29); Chloride 99 mEq/L (98-107); Glucose 109 mg/dL (70-105); Osmolality,Calculated 269 (280-300); Potassium 4.4 mEq/L (3.5-5.1); Sodium 129 mEq/L (136-145); eGFR For African Americans > 60 (> 60); eGFR For Non-African Americans > 60 (> 60)
[2019-02-05 17:57] LABS: Calcium 8.6 mg/dL (8.6-10.3)
[2019-02-06] MEDS: *HR* OxyCODONE Immed Rel 5 MG TABLET PO PRN ×3 (00:27→13:15)
[2019-02-06] MEDS: Budesonide/Formoterol 80/4.5 1 PUFF INH IH SCH ×2 (07:40→19:58)
[2019-02-06] MEDS: Multivit/Ca/Min/Fe/FA 1 TAB TABLET PO SCH (10:01)
[2019-02-06] MEDS: amLODIPine 5 MG TABLET PO SCH (10:02)
[2019-02-06] MEDS: Cholecalciferol (D-3) 1,000 UNIT (25MCG) TABLET PO SCH (10:02)
[2019-02-06] MEDS: ARIPiprazole 5 MG TABLET PO SCH (10:02)
[2019-02-06] MEDS: Lisinopril 20 MG TABLET PO SCH (10:02)
[2019-02-06] MEDS: Pregabalin 50 MG CAPSULE PO SCH ×3 (10:02→21:27)
[2019-02-06] MEDS: Vitamin B Complex/Vit C/Vit E 1 EACH TABLET PO SCH (10:02)
--- NOTE | 2019-02-06 11:18 | Orthopedics Progress Note ---
Date of Encounter: 02/06/19 Time of Encounter: 13:30 - Assessment and Plan (1) Status post lumbar spinal fusion Current Visit: Yes Status: Acute (2) Lumbar radiculopathy Current Visit: Yes Status: Chronic (3) Lumbar stenosis Current Visit: Yes Status: Chronic Qualifiers: Neurogenic claudication status: unspecified Qualified Code(s): M48.061 - Spinal stenosis, lumbar region without neurogenic claudication (4) Spondylisthesis Current Visit: Yes Status: Chronic Qualifiers: Spinal region: unspecified Qualified Code(s): M43.10 - Spondylolisthesis, site unspecified Subjective Principal diagnosis: s/p PLIF Interval history: POD#2 s/p Posterior lumbar interbody fusion L4-L5 [Spondylolisthesis, lumbar stenosis, lumbar radiculopathy] 02/04/19 Patient seen at bedside. A&Ox3 Dressing and incision c/d/i No calf tenderness, erythema, or warmth. Neurovascularly intact b/l LE. Patient on O2 v NC. She states she is always on supplemental oxygen. Labwork, vitals, and medications reviewed. Pain control: Adequate Participating in therapy. Brace in room All questions and concerns addressed. Educated on use of incentive spirometer, ambulation, and hydration. Patient educated on post-operative restrictions and care. Addressed: see above. Patient course and disposition discussed with Dr. Patterson D/C plan: continue postop care Objective Vital signs: Vital Signs Temp Pulse Resp BP Pulse Ox 02/06/19 07:42 18 92 02/06/19 06:39 98.7 F 84 18 150/78 92 02/06/19 04:36 90 02/06/19 04:34 20 90 02/06/19 04:25 98.9 F 87 14 156/86 85 02/05/19 20:04 16 90 02/05/19 18:22 98.0 F 88 14 147/81 91 02/05/19 14:10 98.3 F 68 16 128/76 93 Intake and Output 02/05/19 02/06/19 02/06/19 23:59 07:59 15:59 Output Total 250 / 3200 Balance -250 / -3100 Output: Urine 250 / 250 Other: # Voids 1 1 Weight 84.9 kg Patient Weight 02/06/19 23:59 Weight 84.9 kg - Labs CBC & BMP: 02/05/19 16:43 02/05/19 16:43 Labs: Abnormal lab results MCH 27.9 pg (28.0-33.3) L 02/05/19 16:43 MCHC 31.0 g/dL (31.6-35.5) L 02/05/19 16:43 RDW 15.5 % (11.5-14.5) H 02/05/19 16:43 Sodium 129 mEq/L (136-145) L 02/05/19 16:43 Glucose 109 mg/dL (70-105) H 02/05/19 16:43 Calculated Osmolality 269 (280-300) L 02/05/19 16:43 Consult Discharge Plan - Plan Referrals: Zeb Greene MD [Primary Care Provider] - Prescriptions: Docusate Sodium [Colace] 100 mg PO BID 5 Days #10 capsule OxyCODONE Immed Rel [Roxicodone 5 MG] 5 mg PO Q6HR PRN 5 Days #20 tablet PRN Reason: Severe Pain
--- NOTE | 2019-02-06 11:18 | Discharge Summary ---
Date of Encounter: 02/05/19 Time of Encounter: 09:00 - Discharge Diagnosis (1) Status post lumbar spinal fusion Priority: Primary Status: Acute (2) Lumbar radiculopathy Priority: Primary Status: Chronic (3) Lumbar stenosis Priority: Primary Status: Chronic Qualifiers: Neurogenic claudication status: unspecified Qualified Code(s): M48.061 - Spinal stenosis, lumbar region without neurogenic claudication (4) Spondylisthesis Priority: Primary Status: Chronic Qualifiers: Spinal region: unspecified Qualified Code(s): M43.10 - Spondylolisthesis, site unspecified - Hospital Course Hospital course: Ms. Carpio is a 68 year old female - Time Spent with Patient Total time spent providing and/or coordinating discharge services: - Discharge Medications Prescriptions: New Docusate Sodium [Colace] 100 mg PO BID 5 Days #10 capsule OxyCODONE Immed Rel [Roxicodone 5 MG] 5 mg PO Q6HR PRN 5 Days #20 tablet PRN Reason: Severe Pain Continued Albuterol Sulfate [Ventolin Hfa] 2 puff IH Q6H PRN PRN Reason: Dyspnea Duloxetine HCl [Cymbalta] 60 mg PO BID Lisinopril [Zestril] 20 mg PO QAM amLODIPine [Norvasc] 5 mg PO DAILY #30 tablet ARIPiprazole [Abilify] 2.5 mg PO DAILY Buspirone HCl [Buspar] 15 mg PO TID Calcium Carb/D3/Magnesium/Zinc [Kota Mag Zinc-D Tablet] 1 tab PO QAM Cholecalciferol (Vitamin D3) [Vitamin D3] 1,000 units PO QAM Cyclobenzaprine [Flexeril] 10 mg PO TID PRN PRN Reason: Muscle Spasm Diclofenac Sodium [Voltaren] 1 - 2 gm TP TID PRN PRN Reason: Pain Trazodone HCl 150 mg PO HS PRN PRN Reason: Sleep Vitamin B Complex [B Complex] 1 tab PO QAM Omeprazole [PriLOSEC] 40 mg PO QAM Pregabalin [Lyrica] 100 mg PO TID Fluticasone/Salmeterol [Advair 250-50 Diskus] 1 puff IH BID Home Medications: Fluticasone/Salmeterol [Advair 250-50 Diskus] 1 puff IH BID 04/07/18 [History] Omeprazole [PriLOSEC] 40 mg PO QAM 04/07/18 [History] Pregabalin [Lyrica] 100 mg PO TID 04/07/18 [History] Albuterol Sulfate [Ventolin Hfa] 2 puff IH Q6H PRN 06/13/18 [History] Duloxetine HCl [Cymbalta] 60 mg PO BID 06/13/18 [History] Lisinopril [Zestril] 20 mg PO QAM 06/13/18 [History] amLODIPine [Norvasc] 5 mg PO DAILY #30 tablet 06/15/18 [Rx] ARIPiprazole [Abilify] 2.5 mg PO DAILY 02/04/19 [History] Buspirone HCl [Buspar] 15 mg PO TID 02/04/19 [History] Calcium Carb/D3/Magnesium/Zinc [Kota Mag Zinc-D Tablet] 1 tab PO QAM 02/04/19 [History] Cholecalciferol (Vitamin D3) [Vitamin D3] 1,000 units PO QAM 02/04/19 [History] Cyclobenzaprine [Flexeril] 10 mg PO TID PRN 02/04/19 [History] Diclofenac Sodium [Voltaren] 1 - 2 gm TP TID PRN 02/04/19 [History] Trazodone HCl 150 mg PO HS PRN 02/04/19 [History] Vitamin B Complex [B Complex] 1 tab PO QAM 02/04/19 [History] Docusate Sodium [Colace] 100 mg PO BID 5 Days #10 capsule 02/05/19 [Rx] OxyCODONE Immed Rel [Roxicodone 5 MG] 5 mg PO Q6HR PRN 5 Days #20 tablet 02/05/19 [Rx] Allergies/Adverse Reactions: Allergy/AdvReac Type Severity Reaction Status Date / Time No Known Drug Allergies Allergy Unknown none Verified 02/04/19 08:06 Date of admission: 02/04/19 13:15 Primary care physician: Zeb Greene MD Consults: 02/04/19 12:57 Consult to Occupational Therapy [CONS] Routine Comment: Evaluate, develop and implement POC Reason for Consult: Postoperative rehabilitation Does patient have active BEDREST order?: No Is patient medically & hemodynamically stable?: Yes Patient assessed for mobility or mobilized this visit?: No Consult to Physical Therapy [CONS] Routine Comment: Evaluate, develop and implement POC Reason for Consult: Postoperative rehabilitation Does patient have active BEDREST order?: No Is patient medically & hemodynamically stable?: Yes Patient assessed for mobility or mobilized this visit?: No Consult to Spine Navigator [CONS] [CONS] Routine Discharging clinician: Elio Patterson Jr Anticipated date of discharge: 02/06/19 - VTE Documentation of Mechanical Device: Graduated compression elastic hosiery Labs on day of discharge: Labs from last 24 hours 02/05/19 02/05/19 16:43 16:43 WBC 10.5 RBC 4.23 Hgb 11.8 Hct 38.1 MCV 90.1 MCH 27.9 L MCHC 31.0 L RDW 15.5 H Plt Count 216 MPV 10.5 Immature Gran % 0.3 Seg Neutrophils % 67.8 Lymphocytes % 24.0 Monocytes % 6.9 Eosinophils % 0.6 Basophils % 0.4 Neutrophils # 7.1 Lymphocytes # 2.5 Monocytes # 0.7 Eosinophils # 0.1 Basophils # 0.0 Platelet Estimate Normal Sodium 129 L Potassium 4.4 Chloride 99 Carbon Dioxide 23 BUN 15 Creatinine 0.73 Est GFR ( Amer) > 60 Est GFR (Non-Af Amer) > 60 BUN/Creatinine Ratio 21 Glucose 109 H Calculated Osmolality 269 L Calcium 8.6 - Impressions ITS Impressions Fluoroscopy 02/04/19 00:00 IMPRESSION: Fluoroscopy was utilized for the purposes of posterior lumbar fusion at L4-5 D/ / Jeremiah Watt MD / Jeremiah Watt MD Interpreting Provider: Jeremiah Watt MD Lumbar Spine X-Ray 02/04/19 00:00 IMPRESSION: Fluoroscopy was utilized for the purposes of posterior lumbar fusion at L4-5 D/ / Jeremiah Watt MD / Jeremiah Watt MD Interpreting Provider: Jeremiah Watt MD Chest X-Ray 08/30/19 07:03 IMPRESSION: 1. Bibasilar opacification likely representing atelectasis versus scarring. 2. There may be trace pleural effusions bilaterally. 3. Slight elevation of the left hemidiaphragm. D/ / Wilfredo Hackett MD / Wilfredo Hackett MD Interpreting Provider: Wilfredo Hackett MD - Patient Status Disposition: Transfer Inpatient Rehab Fac Condition: Good Functional capacity at discharge: uses cane/walker Overall status at discharge: patient is progressing back to baseline - Discharge Instructions Follow Up With: Zeb Greene MD [Primary Care Provider] - - Diet and Activity Activity: increase activity as tolerated Diet: advance to your usual diet
[2019-02-06] MEDS: Ringers Solution, Lactated 1,000 ML IVC SCH ×3 (19:10→23:58)
[2019-02-06] MEDS: *HR* HYDROcodone/Acet 5/325 mg TABLET PO PRN (21:47)
[2019-02-07] MEDS: *HR* OxyCODONE Immed Rel 5 MG TABLET PO PRN ×3 (00:04→09:51)
[2019-02-07 07:15] VITALS: BP 123/75
[2019-02-07] MEDS: Budesonide/Formoterol 80/4.5 1 PUFF INH IH SCH (07:43)
[2019-02-07] MEDS: Vitamin B Complex/Vit C/Vit E 1 EACH TABLET PO SCH (09:41)
[2019-02-07] MEDS: amLODIPine 5 MG TABLET PO SCH (09:41)
[2019-02-07] MEDS: ARIPiprazole 5 MG TABLET PO SCH (09:42)
[2019-02-07] MEDS: Multivit/Ca/Min/Fe/FA 1 TAB TABLET PO SCH (09:44)
[2019-02-07] MEDS: Cholecalciferol (D-3) 1,000 UNIT (25MCG) TABLET PO SCH (09:44)
[2019-02-07] MEDS: Pregabalin 50 MG CAPSULE PO SCH (09:44)
[2019-02-07] MEDS: Lisinopril 20 MG TABLET PO SCH (09:45)
[2019-02-07] MEDS: *HR* HYDROcodone/Acet 5/325 mg TABLET PO PRN (12:53)
== END 2019-02-07 13:04 | DRG 455 ==
LOC: SAMDAY 06:13 → 3NENU 13:15
PROVIDERS: ADMIT Orthopaedic Surgery Orthopaedic Surgery of the Spine; ATTEND Orthopaedic Surgery Orthopaedic Surgery of the Spine